=== PATIENT | male | born 1985 | race Caucasian/White ===

== ENCOUNTER 2017-01-02 11:19 | Emergency (ER) | payer SELFPAY ==
[~2017-01-02] VITALS: Ht 165.1 cm; Wt 81.2 kg
[2017-01-02 12:19] VITALS: BP 118/63
== END 2017-01-02 12:19 | disposition home or self-care (01) ==
LOC: ED 11:19
DX: M79.672 Pain in left foot (principal); R03.0 Elevated blood-pressure reading, without diagnosis of hypertension; X50.1XXA Overexertion from prolonged static or awkward postures, initial encounter; Y99.8 Other external cause status; Y93.89 Activity, other specified; Y92.89 Other specified places as the place of occurrence of the external cause